=== PATIENT | male | born 1985 | race Caucasian/White ===

== ENCOUNTER 2020-12-20 10:11 | Emergency (ER) | payer OTHER ==
[~2020-12-20] VITALS: Ht 177.8 cm; Wt 95.3 kg
[2020-12-20] MEDS ORDERED: cloNIDine HCL 0.1 MG TAB ONE (10:34)
[2020-12-20] MEDS ORDERED: cloNIDine HCL 0.1 MG TAB PO ONE (10:45)
[2020-12-20 12:50] VITALS: BP 128/100
== END 2020-12-20 13:09 | disposition home or self-care (01) ==
LOC: ER 10:11
DX: I10 Essential (primary) hypertension (principal); R21 Rash and other nonspecific skin eruption
CPT/HCPCS: 70450